=== PATIENT | female | born 1960 | race Caucasian/White ===

== ENCOUNTER 2020-07-13 02:30 | Emergency (ER) | payer OTHER ==
[2020-07-13 02:37] VITALS: RESP 16
[2020-07-13] MEDS ORDERED: CEPHALEXIN 500MG STARTER PACK 4 CAP BTL PO STA (03:23)
[2020-07-13] MEDS ORDERED: NYSTATIN 100,000UNIT/GM CREAM 30 GM TUBE TOPICAL STA (03:23)
[2020-07-13] MEDS ORDERED: CEPHALEXIN 500 MG CAP PO STA (03:23)
--- NOTE | 2020-07-13 03:24 | ED ---
Extremity Problem HPI - General Chief complaint: Extremity Problem,Nontraumatic Stated complaint: Ankle redness Time Seen by Provider: 07/13/20 02:33 Source: patient, RN notes reviewed, old records reviewed Mode of arrival: ambulatory Limitations: no limitations - History of Present Illness Initial comments: This is a 60-year-old female DF for evaluation patient patient has right lower extremity redness and erythema, symptoms spreading from ankle toward mid tibia area. History of cellulitis on antibiotics recently no current antibiotics. No fevers. No other pain noted no fevers MD Complaint: extremity pain, extremity swelling -: days(s) Location: right, lower extremity History of Same: Yes Radiation: none Severity scale (1-10): 4 Consistency: constant Improves with: nothing Worsens with: nothing Associated Symptoms: denies other symptoms - Related Data Previous Rx's Medication Instructions Recorded Cephalexin [Keflex] 500 mg PO Q6HR #40 cap 07/13/20 Nystatin 100,000Unit/gm Cream 1 applic TOPICAL BID #15 gram 07/13/20 [Mycostatin Cream] Allergies Allergy/AdvReac Type Severity Reaction Status Date / Time Penicillins Allergy Unknown Verified 07/13/20 02:37 sulfamethoxazole AdvReac Unknown Verified 07/13/20 02:37 [From Bactrim] Childhood trimethoprim [From Bactrim] AdvReac Unknown Verified 07/13/20 02:37 Childhood Review of Systems ROS Statement: Those systems with pertinent positive or pertinent negative responses have been documented in the HPI. ROS Other: All systems not noted in ROS Statement are negative. Past Medical History Past Medical History: Hypertension History of Any Multi-Drug Resistant Organisms: MRSA Date of last positivie culture/infection: left hip MDRO Source:: 2009 Past Surgical History: Tubal Ligation Additional Past Surgical History / Comment(s): foot , neck fusion Past Psychological History: No Psychological Hx Reported Smoking Status: Never smoker Past Alcohol Use History: None Reported Past Drug Use History: None Reported General Exam Limitations: no limitations General appearance: alert, in no apparent distress Head exam: Present: atraumatic, normocephalic, normal inspection Eye exam: Present: normal appearance, PERRL, EOMI. Absent: scleral icterus, conjunctival injection, periorbital swelling ENT exam: Present: normal exam, mucous membranes moist Neck exam: Present: normal inspection. Absent: tenderness, meningismus, lymphadenopathy Respiratory exam: Present: normal lung sounds bilaterally. Absent: respiratory distress, wheezes, rales, rhonchi, stridor Cardiovascular Exam: Present: regular rate, normal rhythm, normal heart sounds. Absent: systolic murmur, diastolic murmur, rubs, gallop, clicks GI/Abdominal exam: Present: soft, normal bowel sounds. Absent: distended, tenderness, guarding, rebound, rigid Extremities exam: Present: normal inspection, full ROM, normal capillary refill. Absent: tenderness, pedal edema, joint swelling, calf tenderness Back exam: Present: normal inspection Neurological exam: Present: alert, oriented X3, CN II-XII intact Psychiatric exam: Present: normal affect, normal mood Skin exam: Present: warm, dry, intact, normal color. Absent: rash Course Vital Signs 07/13/20 07/13/20 02:33 03:30 Temperature 98.4 F 98 F Pulse Rate 81 77 Respiratory 16 16 Rate Blood Pressure 157/84 144/74 O2 Sat by Pulse 98 98 Oximetry - Reevaluation(s) Reevaluation #1: medical record is reviewed Patient feeling better here in the ER Patient informed of results, questions are answered Patient feels improved and okay for discharge home Medical Decision Making - Medical Decision Making 60 female to the ER, She presents for right ankle cellulitis, bilateral feet to have fungal infection, patient given appropriate treatment discharged Disposition Clinical Impression: Cellulitis of right lower leg, Athlete's foot Disposition: HOME SELF-CARE Condition: Good Instructions (If sedation given, give patient instructions): Cellulitis (ED), Skin Yeast Infection (ED) Prescriptions: Cephalexin [Keflex] 500 mg PO Q6HR #40 cap Nystatin 100,000Unit/gm Cream [Mycostatin Cream] 1 applic TOPICAL BID #15 gram Is patient prescribed a controlled substance at d/c from ED?: No Referrals: Pardeep Benton MD [Primary Care Provider] - 1-2 days
[2020-07-13 03:34] VITALS: BP 144/74; PULSE 77; TEMP 98
== END 2020-07-13 03:33 | disposition home or self-care (01) ==
LOC: EC 02:30
DX: L03.115 Cellulitis of right lower limb (principal); B35.3 Tinea pedis; Z88.0 Allergy status to penicillin; Z88.2 Allergy status to sulfonamides; Z88.1 Allergy status to other antibiotic agents; Z86.14 Personal history of Methicillin resistant Staphylococcus aureus infection
CPT/HCPCS: 99283

== ENCOUNTER → 2021-12-29 | Outpatient (CLI) | payer OTHER ==
--- NOTE | 2021-12-30 04:09 | MR ---
EXAMINATION TYPE: MR shoulder LT wo con DATE OF EXAM: 12/29/2021 COMPARISON: None HISTORY: Shoulder pain. Multiplanar multiecho imaging of the left shoulder without contrast. FINDINGS: There is a moderately large shoulder joint effusion. The glenoid selene appear intact. Subscapularis t endon is intact. There is fluid around the biceps tendon. Biceps tendon appears intact. There is vert ical defect through the supraspinatus tendon. There is some minimal retraction of the tendon. There i s mild spurring at the AC joint and minimal subacromial impingement. There is no evidence for fractur e. I see no bony destructive process. There are small degenerative cysts in the greater tuberosity of the humerus. IMPRESSION: Shoulder joint effusion. Large rotator full thickness cuff tear with retraction of the supraspinatus tendon. No fracture seen.
== END | disposition home or self-care (01) ==
LOC: RADMRIMAIN 12:55
PROVIDERS: ATTEND Orthopaedic Surgery
DX: M75.112 Incomplete rotator cuff tear or rupture of left shoulder, not specified as traumatic (principal)